=== PATIENT | female | born 1975 | race Caucasian/White ===

== ENCOUNTER 2018-11-07 12:33 | Emergency (ER) | payer SELFPAY ==
[2018-11-07 13:54] LABS: Absolute Lymphocytes (CBC) 2.9 K/uL (0.7-4.9); Absolute Monocytes 0.8 K/uL (0.1-1.3); Absolute Neutrophil 8.5 K/uL (1.8-8.0); Basophils % 0.7 % (0-1.3); Eosinophils % 2.1 % (0-4.4); Hematocrit 49.6 % (36.0-45.0); Lymphocytes % 23.5 % (15.3-44.8); MPV 7.9 fL (7.6-11.3); Monocytes % 6.1 % (3.3-12.3); RBC Red Blood Cell Count 5.43 M/uL (3.86-4.86)
--- NOTE | 2018-11-07 13:57 | RAD REPORT ---
EXAM DESCRIPTION: CT - Head Brain Wo Cont - 11/07/2018 1:47 pm CLINICAL HISTORY: Numbness COMPARISON: None. TECHNIQUE: Computed axial tomography of the head was obtained. IV contrast was not requested. All CT scans are performed using dose optimization technique as appropriate and may include automated exposure control or mA/KV adjustment according to patient size. FINDINGS: An intracranial bleed is not seen . The ventricles are normal in caliber. No extra-axial fluid collection is noted. Fluid within the sinuses/ mastoids is not seen. IMPRESSION: No acute intracranial abnormality is seen. If patient's symptoms persist MRI of the bra in would be recommended.
[2018-11-07 14:02] LABS: Protime INR 1.11
--- NOTE | 2018-11-07 14:04 | EKG ---
Test Date: 2018-11-07 Test Time: 13:19:44 Equipment Cleaner: STORM MEASUREMENT RESULTS: Intervals: Rate: 85 MA: 146 QRSD: 82 QT: 358 QTc: 426 Rush: P: 75 MA: 146 QRS: 90 T: 52 INTERPRETIVE STATEMENTS: Normal sinus rhythm Rightward axis Cannot rule out Anterior infarct, age undetermined Abnormal ECG No previous ECG available for comparison Electronically Signed On 11-07-18 14:03:50 CDT by Abdi Dodge
[2018-11-07 14:28] LABS: ALT/SGPT 65 U/L (12-78); AST/SGOT 35 U/L (15-37); Albumin 3.9 g/dL (3.4-5.0); Alkaline Phosphatase 70 U/L (45-117); BUN Blood Urea Nitrogen 11 mg/dL (7-18); Bicarbonate 25 mmol/L (21-32); Bilirubin Direct 0.2 mg/dL (0-0.2); Bilirubin Total 0.6 mg/dL (0.2-1.0); Glucose Level 96 mg/dL (74-106); Magnesium 2.1 mg/dL (1.8-2.4); NT PRO-BNP 34 pg/mL (<125); Potassium 3.8 mmol/L (3.5-5.1); Protein, Total 7.7 g/dL (6.4-8.2); Sodium Level 141 mmol/L (136-145); Troponin (Emerg Dept Use Only) < 0.02 ng/mL (0.0-0.045)
--- NOTE | 2018-11-07 15:59 | ER ---
Nurse's Notes [facility] Name: Marci Fitzpatrick Age: 43 yrs Sex: Female : 1975 Arrival Date: 11/07/2018 Time: 12:38 Bed 15 Private MD: Diagnosis: Paresthesia of skin Presentation: 11/07 12:39 Presenting complaint: Patient states: a week ago, i felt numbness on the R side of my hj face and head, i think im having severe anxiety attacked and my BP is high, denies N/V; denies bilateral weakness or slurred speech;. Transition of care: patient was not received from another setting of care. Onset of symptoms was November 07, 2018. Risk Assessment: Do you want to hurt yourself or someone else? Patient reports no desire to harm self or others. Initial Sepsis Screen: Does the patient meet any 2 criteria? No. Patient's initial sepsis screen is negative. Does the patient have a suspected source of infection? No. Patient's initial sepsis screen is negative. Care prior to arrival: None. 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 - Social history:: Smoking status: Patient/guardian denies using tobacco. - Ebola Screening: : Patient denies travel to an Ebola-affected area in the 21 days before illness onset No symptoms or risks identified at this time. Screenin:20 Abuse screen: Denies threats or abuse. Nutritional screening: No deficits noted. ae4 Tuberculosis screening: No symptoms or risk factors identified. Fall Risk None identified. Assessment: 13:00 General: Appears in no apparent distress. Behavior is anxious. Neuro: Level of ae4 Consciousness is awake, alert, obeys commands, Oriented to person, place, time, situation, Appropriate for age. Neuro: Reports numbness in right eye, right cheek, right ear, mouth, chin and right jaw. Cardiovascular: Heart tones S1 S2 present Patient's skin is warm and dry. Respiratory: Airway is patent Respiratory effort is even, unlabored, Respiratory pattern is regular, symmetrical, Breath sounds are clear bilaterally. GI: No signs and/or symptoms were reported involving the gastrointestinal system. : No signs and/or symptoms were reported regarding the genitourinary system. Urine is clear. EENT: Reports Numbness to right side of face.. Derm: Skin is pink, warm \T\ dry. Musculoskeletal: No signs and/or symptoms reported regarding the musculoskeletal system. 14:09 Reassessment: No changes from previously documented assessment. Patient and/or family ae4 updated on plan of care and expected duration. Pain level reassessed. Patient is alert, oriented x 3, equal unlabored respirations, skin warm/dry/pink. 14:09 General: Behavior is cooperative, anxious. ae4 14:43 Reassessment: Patient and/or family updated on plan of care and expected duration. Pain ae4 level reassessed. Patient ambulated to restroom to urinate. Patient has steady gait. Patient states feeling better. 14:43 General: Behavior is cooperative, anxious. ae4 14:50 Reassessment: Patient appears in no apparent distress at this time. General: Behavior ae4 is cooperative, anxious. Pain: Denies pain. Vital Signs: 12:41 BP 149 / 80; Pulse 105; Resp 18; Temp 97.8(TE); Pulse Ox 99% on R/A; Weight 83.91 kg; hj Height 5 ft. 3 in. (160.02 cm); Pain 0/10; 14:09 BP 124 / 79; Pulse 66; Resp 16; Pulse Ox 98% on R/A; ae4 16:19 BP 113 / 72; Pulse 75; Resp 18; Pulse Ox 99% on R/A; ae4 12:41 Body Mass Index 32.77 (83.91 kg, 160.02 cm) ED Course: 12:38 Patient arrived in ED. mr 12:40 Triage completed. hj 12:41 Arm band placed on left wrist. hj 12:47 Abelardo Arroyo, SERA is Primary Nurse. ae4 12:54 Lon Gómez PA is PHCP. [facility] 12:54 Carlos Desai MD is Attending Physician. [facility] 13:00 Placed in gown. Bed in low position. Call light in reach. Side rails up X 1. Cardiac ae4 monitor on. Pulse ox on. NIBP on. Warm blanket given. 13:24 EKG done, by diesel automotive technician. reviewed by Lon VELEZ. 3 13:40 Inserted saline lock: 20 gauge in left antecubital area, using aseptic technique. Blood ae4 collected. 13:49 Head Brain Wo Cont In Process Unspecified. EDMS 15:58 Sekou Rain MD is Referral Physician. [facility] 16:23 No provider procedures requiring assistance completed. IV discontinued, intact, ae4 bleeding controlled, No redness/swelling at site. Pressure dressing applied. Administered Medications: No medications were administered Outcome: 15:58 Discharge ordered by . jmm 16:24 Discharged to home ambulatory. ae4 16:24 Condition: stable 16:24 Discharge instructions given to patient, Instructed on discharge instructions, follow up and referral plans. Demonstrated understanding of instructions. 16:24 Patient left the ED. ae4 Signatures: Dispatcher [employer] EDAL Lno Gómez PA PA [facility] LeonidIndy mr Wenceslao Barba, RN RN Kerry Vaughn 3 Abelardo Arroyo, SERA RN ae4 Corrections: (The following items were deleted from the chart) 12:43 12:41 Pulse 105bpm; Resp 18bpm; Pulse Ox 99% RA; Temp 97.8F Temporal; 83.91 kg; Height hj 5 ft. 3 in.; BMI: 32.7; Pain 0/10; hj 14:51 14:09 Reassessment: No changes from previously documented assessment. Patient and/or ae4 family updated on plan of care and expected duration. Pain level reassessed. Patient is alert, oriented x 3, equal unlabored respirations, skin warm/dry/pink. ae4 14:51 14:43 Reassessment: Patient and/or family updated on plan of care and expected ae4 duration. Pain level reassessed. Patient ambulated to restroom to urinate. Patient has steady gait. Patient states feeling better. ae4
--- NOTE | 2018-11-07 15:59 | EDPHYS ---
Physician Documentation [facility] Name: Marci Fitzpatrick Age: 43 yrs Sex: Female : 1975 Arrival Date: 11/07/2018 Time: 12:38 Bed 15 Private MD: ED Physician Carlos Desai HPI: 11/07 13:03 This 43 yrs old Female presents to ER via Ambulatory with complaints of jmm Numbness Of Face. 13:03 The patient's problem is reported as paresthesias, in right side of face. jmm 13:03 Duration: The episodes are intermittent. The symptoms are alleviated by nothing. The jmm symptoms are aggravated by nothing. This is a 43 year old female with a history of anxiety that presents to the ED with complaints of right sided facial numbness for the past week and a half. Denies weakness, denies slurred speech, denies pain. . 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 - Social history:: Smoking status: Patient/guardian denies using tobacco. - Ebola Screening: : Patient denies travel to an Ebola-affected area in the 21 days before illness onset No symptoms or risks identified at this time. ROS: 13:03 Constitutional: Negative for fever, chills, and weight loss, Cardiovascular: Negative jmm for chest pain, palpitations, and edema, Respiratory: Negative for shortness of breath, cough, wheezing, and pleuritic chest pain, Abdomen/GI: Negative for abdominal pain, nausea, vomiting, diarrhea, and constipation, Back: Negative for injury and pain. 13:03 Neuro: Positive for numbness. 13:03 All other systems are negative. Exam: 13:03 Radiologist reports: negative jmm 13:03 Constitutional: This is a well developed, well nourished patient who is awake, alert, and in no acute distress. Head/Face: atraumatic. Eyes: EOMI, no conjunctival erythema appreciated ENT: Moist Mucus Membranes Neck: Trachea midline, Supple Chest/axilla: Normal chest wall appearance and motion. Cardiovascular: Regular rate and rhythm. No edema appreciated Respiratory: Normal respirations, no respiratory distress appreciated Abdomen/GI: Non distended, soft Back: Normal ROM 13:03 Skin: Appearance: Color: normal in color. 13:03 Neuro: Orientation: is normal, Mentation: is normal, Memory: is normal, Cerebellar function: normal finger to nose testing, Motor: is normal, Gait: is steady. 13:03 Psych: Behavior/mood is pleasant, cooperative. 13:23 ECG was reviewed by the Attending Physician. [facility] Vital Signs: 12:41 BP 149 / 80; Pulse 105; Resp 18; Temp 97.8(TE); Pulse Ox 99% on R/A; Weight 83.91 kg; hj Height 5 ft. 3 in. (160.02 cm); Pain 0/10; 14:09 BP 124 / 79; Pulse 66; Resp 16; Pulse Ox 98% on R/A; ae4 16:19 BP 113 / 72; Pulse 75; Resp 18; Pulse Ox 99% on R/A; ae4 12:41 Body Mass Index 32.77 (83.91 kg, 160.02 cm) MDM: 13:[address] [facility] 15:57 Data reviewed: vital signs, nurses notes. Counseling: I had a detailed discussion with [facility] the patient and/or guardian regarding: the historical points, exam findings, and any diagnostic results supporting the discharge/admit diagnosis, radiology results, the need for outpatient follow up, to return to the emergency department if symptoms worsen or persist or if there are any questions or concerns that arise at home. ED course: No motor deficits appreciated. Patient is advised to follow up with neuro for further evaluation. Patient understood and agrees with the plan of care. . 11/07 13:09 Order name: Basic Metabolic Panel [facility] 11/07 13:09 Order name: CBC with Diff [facility] 11/07 13:09 Order name: LFT's; Complete Time: 15:08 [facility] 11/07 13:09 Order name: Magnesium; Complete Time: 15:08 [facility] 11/07 13:09 Order name: NT PRO-BNP; Complete Time: 15:08 [facility] 11/07 13:09 Order name: PT-INR; Complete Time: 14:22 [facility] 11/07 13:09 Order name: Troponin (emerg Dept Use Only); Complete Time: 15:08 [facility] 11/07 13:09 Order name: EKG; Complete Time: 13:38 [facility] 11/07 13:09 Order name: Cardiac monitoring; Complete Time: 13:23 [facility] 11/07 13:09 Order name: EKG - Nurse/Tech; Complete Time: 13:23 [facility] 11/07 13:28 Order name: Head Brain Wo Cont; Complete Time: 14:02 [facility] 11/07 13:37 Order name: Basic Metabolic Panel; Complete Time: 15:08 [facility] 11/07 13:37 Order name: CBC with Automated Diff; Complete Time: 14:02 [facility] 11/07 13:09 Order name: IV Saline Lock; Complete Time: 13:42 [facility] 11/07 13:09 Order name: Labs collected and sent; Complete Time: 13:42 [facility] 11/07 13:09 Order name: O2 Per Protocol; Complete Time: 13:42 [facility] 11/07 13:09 Order name: O2 Sat Monitoring; Complete Time: 13:42 jm EC:23 Rate is 85 beats/min. Rhythm is regular. Right axis deviation noted. LA interval is jmm normal. QRS interval is normal. QT interval is normal. T waves are Inverted in leads V2, V3. No ST changes noted. Administered Medications: No medications were administered Disposition: 11/07/18 15:58 Discharged to Home. Impression: Paresthesia of skin. - Condition is Stable. - Discharge Instructions: Paresthesia. - Medication Reconciliation Form, Thank You Letter, Antibiotic Education, Prescription Opioid Use form. - Follow up: Sekou Rain MD; When: 2 - 3 days; Reason: Recheck today's complaints, Continuance of care, Re-evaluation by your physician. Signatures: Dispatcher [employer] [facility] Lon Gómez PA PA jmm Joaquin, Henry, RN RN Abelardo Arroyo RN RN ae4 Corrections: (The following items were deleted from the chart) 13:49 13:38 Head Brain Wo [id number].RAD.BRZ ordered. [facility] 16:24 15:58 11/07/2018 15:58 Discharged to Home. Impression: Paresthesia of skin. Condition ae4 is Stable. Forms are Medication Reconciliation Form, Thank You Letter, Antibiotic Education, Prescription Opioid Use. Follow up: Sekou Rain; When: 2 - 3 days; Reason: Recheck today's complaints, Continuance of care, Re-evaluation by your physician. jewell
== END 2018-11-07 16:24 | disposition home or self-care (01) ==
LOC: ER 12:33
DX: R20.2 Paresthesia of skin (principal); Z88.5 Allergy status to narcotic agent
CPT/HCPCS: 36415; 70450; 80048; 80076; 83735; 83880; 84484; 85025; 85610; 93005; 99284